=== PATIENT | male | born 1975 | race Caucasian/White ===

== ENCOUNTER 2018-07-21 18:55 | Emergency (ER) | payer OTHER, SELFPAY ==
[2018-07-21 18:57] VITALS: BP 161/104; PULSE 88; RESP 16; TEMP 35.7; O2SAT 97; BMI 35.2
--- NOTE | 2018-07-21 20:28 | ED.DCSUM_ITS ---
- ER Visit Summary Date of Service: 07/21/18 Chief Complaint: Abscess History of Present Illness: The patient is a 42 M abscess left trapezius. Noticed 2 days ago. He states he popped it this morning. White drainage to clear drainage. Went to urgent care today. Was sent here due to location concerns. Denies fever. He is a diabetic diet controlled. Similar symptoms in his knee in the past requiring drainage. Physical Examination: General: Alert and oriented ?3, no acute distress HEENT: Normocephalic, atraumatic. Moist mucosa membranes Neck: supple, nontender. Cardiovascular: Regular rate and rhythm, no murmurs Respiratory: Normal breath sounds, symmetric, no distress Abdomen: Soft, nontender, nondistended Extremities: Nontender, no edema, pulses intact ?4 Neuro: no focal neurological deficits. Skin: 1 cm small induration left mid trapezius, there is open comedone. Mild redness around the region. No streaking. Test Results: [] Emergency Department Course and Treatment: Patient has expressed drainage out earlier this morning. A small induration. Discussed with patient can help with I&D for continued drainage for which he agreed. This was performed, there is no additional drainage, bloody drainage as controlled. Wound care discussed. No indication for antibiotic. Signs and symptoms discussed return. Follow-up with his PCP. Treatment Plan: [] Disposition: Discharge Impression: Left trapezius abscess status post incision and drainage This note was generated with [employer] dictation software. It may contain incorrect words, spelling, and punctuation that were not noted in review of the chart prior to signing ED Disposition - Plan for ED Patient: Disposition: Home or Assisted Living Chief Complaint: Abscess Diagnosis: Abscess Instructions: ED Abscess IandD Referrals: Care Physician,No Primary [Primary Care Provider] - Additional Instructions: Follow-up with her doctor in 5-7 days as needed.
== END 2018-07-21 21:12 | disposition home or self-care (01) ==
PROVIDERS: Emergency Provider Emergency Medicine
DX: L02.414 Cutaneous abscess of left upper limb (principal); E11.9 Type 2 diabetes mellitus without complications
CPT/HCPCS: 10060; 99283